=== PATIENT | male | born 1950 | race Caucasian/White ===

== ENCOUNTER 2023-10-29 18:34 | Inpatient (IN) | payer MEDICARE, OTHER ==
[~2023-10-29] VITALS: Ht 182.9 cm; Wt 95.3 kg
[2023-10-29 18:57] VITALS: BP_SYST 147; PULSE 78; RESP 18; TEMP 97.7; O2SAT 96
[2023-10-29 19:19] LABS: BILIRUBIN,URINE NEGATIVE (NEGATIVE); BLOOD, URINE NEGATIVE (NEGATIVE); CLARITY/URINE CLEAR (CLEAR); COLOR,URINE YELLOW (YELLOW); GLUCOSE,URINE NEGATIVE (NEGATIVE); KETONES,URINE NEGATIVE (NEGATIVE); LEUKOCYTE ESTERASE ,URINE NEGATIVE (NEGATIVE); NITRITE, URINE NEGATIVE (NEGATIVE); PROTEIN URINE 1+ (NEGATIVE)
[2023-10-29 19:26] LABS: BACTERIA,URINE RARE /HPF (None Seen); MUCUS,URINE None Seen /LPF (None Seen); RBC,URINE NONE SEEN /HPF (0-3); WBC,URINE NONE SEEN /HPF (0-3)
[2023-10-29 19:44] LABS: MEAN CORPUSCULAR HEMOGLOBIN 36 pg (27-31); MEAN CORPUSCULAR HGB CONC 35 % (32-36); MEAN CORPUSCULAR VOLUME 103 fL (79.0-98.0); RED CELL DISTRIBUTION WIDTH 19.7 % (9.0-15.0); WHITE BLOOD COUNT (AUTO) 2.9 K/uL (4.8-10.8)
[2023-10-29 19:53] LABS: HEMATOCRIT 18.5 % (36-54); HEMOGLOBIN 6.4 g/dL (14.0-18.0); PLATELET COUNT (AUTO) 107 K/uL (130-430)
[2023-10-29 20:04] LABS: ANION GAP 13 (5-15); CALCIUM 10.7 mg/dL (8.4-11.0); CARBON DIOXIDE 24 mmol/L (23-29); CHLORIDE 105 mmol/L (98-107); CREATININE 1.34 mg/dL (0.55-1.30); GLUCOSE 163 mg/dL (74-106); POTASSIUM 3.6 mmol/L (3.5-5.1); SODIUM SERUM 142 mmol/L (136-145); UREA NITROGEN, BLOOD 31 mg/dL (8-21)
[2023-10-29 20:08] LABS: BAND % (MANUAL) 0 % (0-6); BASOPHILS % (MANUAL) 0 % (0-2); EOSINOPHILS % (MANUAL) 1 % (0-7); LYMPHOCYTES % (MANUAL) 44 % (20-46); MONOCYTES % (MANUAL) 2 % (0-11)
[2023-10-29 20:10] LABS: ANISOCYTOSIS 1+; PLATELET ESTIMATE DECREASED (ADEQUATE); POLYCHROMASIA 1+
[2023-10-29 21:07] LABS: ALBUMIN 3.5 g/dL (3.4-4.8); BILIRUBIN,DIRECT 0.1 mg/dL (0.0-0.3); TOTAL BILIRUBIN 0.4 mg/dL (0.0-1.0); TOTAL PROTEIN, SERUM 8.1 g/dL (6.4-8.3)
[2023-10-29] MEDS ORDERED: HYDROcodone/ACETAMIN 10-325 MG TAB PO PRN (21:30)
[2023-10-29] MEDS ORDERED: ACETAMINOPHEN 325 MG TABLET PO PRN (21:30)
[2023-10-29] MEDS ORDERED: ONDANSETRON HCL 4 MG/2 ML VIAL IVP PRN (21:30)
[2023-10-29] MEDS ORDERED: HYDROcodone/ACETAMIN 5-325 MG TAB (NORCO/ VICODIN) PO PRN (21:30)
[2023-10-29] MEDS ORDERED: METF-381 PO (22:13)
[2023-10-29] MEDS ORDERED: ATOR20TA64 PO (22:13)
[2023-10-29] MEDS ORDERED: CITA20TA16 PO (22:13)
[2023-10-29] MEDS ORDERED: VALS1TAB80 PO (22:13)
[2023-10-29] MEDS ORDERED: HYDR25TA86 (22:13)
[2023-10-29] MEDS ORDERED: ATEN50TA PO (22:13)
[2023-10-29] MEDS ORDERED: AMLO10TA88 PO (22:13)
[2023-10-29] MEDS ORDERED: ASPI-1393 PO (22:14)
[2023-10-30 03:38] LABS: HEMOGLOBIN 7.4 g/dL (14.0-18.0); MEAN CORPUSCULAR HEMOGLOBIN 33 pg (27-31); MEAN CORPUSCULAR HGB CONC 35 % (32-36); MEAN CORPUSCULAR VOLUME 95 fL (79.0-98.0); NEUTROPHILS # (AUTO) 1.3 K/uL (1.8-7.7)
[2023-10-30 03:45] LABS: BASOPHILS % (AUTO) 0.2 % (0.0-2.0); EOSINOPHILS % (AUTO) 1.2 % (0.0-4.0); LYMPHOCYTES % (AUTO) 58.2 % (20.5-51.5); MONOCYTES # (AUTO) 0.1 K/uL (0.0-1.0); MONOCYTES % (AUTO) 1.8 % (1.7-9.3); NEUTROPHILS % (AUTO) 38.6 % (40.0-70.0); PLATELET COUNT (AUTO) 92 K/uL (130-430); RED BLOOD CELL COUNT(AUTO) 2.27 MIL/uL (4.2-6.2); RED CELL DISTRIBUTION WIDTH 20.4 % (9.0-15.0); WHITE BLOOD COUNT (AUTO) 3.4 K/uL (4.8-10.8)
[2023-10-30 03:54] LABS: HEMATOCRIT 21.5 % (36-54)
[2023-10-30 08:20] LABS: BASOPHILS % (AUTO) 0.3 % (0.0-2.0); EOSINOPHILS % (AUTO) 0.8 % (0.0-4.0); HEMOGLOBIN 7.4 g/dL (14.0-18.0); LYMPHOCYTES # (AUTO) 1.4 K/uL (1.0-5.5); LYMPHOCYTES % (AUTO) 46.1 % (20.5-51.5); MEAN CORPUSCULAR HEMOGLOBIN 34 pg (27-31); MEAN CORPUSCULAR HGB CONC 34 % (32-36); MEAN CORPUSCULAR VOLUME 99 fL (79.0-98.0); MONOCYTES # (AUTO) 0.3 K/uL (0.0-1.0); NEUTROPHILS # (AUTO) 1.4 K/uL (1.8-7.7); PLATELET COUNT (AUTO) 89 K/uL (130-430); RED BLOOD CELL COUNT(AUTO) 2.18 MIL/uL (4.2-6.2); RED CELL DISTRIBUTION WIDTH 21.1 % (9.0-15.0); WHITE BLOOD COUNT (AUTO) 3.1 K/uL (4.8-10.8)
[2023-10-30 08:32] LABS: ALANINE AMINOTRANSFERASE 19 U/L (12-78); ANION GAP 7 (5-15); ASPARTATE AMINOTRANSFERASE 15 U/L (10-37); CALCIUM 9.4 mg/dL (8.4-11.0); CARBON DIOXIDE 27 mmol/L (23-29); CHLORIDE 109 mmol/L (98-107); CREATININE 1.09 mg/dL (0.55-1.30); GLUCOSE 113 mg/dL (74-106); POTASSIUM 3.5 mmol/L (3.5-5.1); SODIUM SERUM 143 mmol/L (136-145); TOTAL BILIRUBIN 0.9 mg/dL (0.0-1.0); TOTAL PROTEIN, SERUM 7.2 g/dL (6.4-8.3); UREA NITROGEN, BLOOD 23 mg/dL (8-21)
[2023-10-30 08:43] LABS: HEMATOCRIT 21.5 % (36-54)
[2023-10-30 08:48] LABS: NEUTROPHILS % (AUTO) 43.8 % (40.0-70.0)
[2023-10-30] MEDS: PANTOPRAZOLE SODIUM 40 MG/VIAL (PROTONIX) IVP ONE (11:59)
[2023-10-30] MEDS: amLODIPine BESYLATE 10 MG TABLET PO ONE (11:59)
[2023-10-30] MEDS ORDERED: INSULIN Lispro 100 UNITS/ML, 3 ML VIAL (humaLOG) ONE (12:35)
[2023-10-30] MEDS: INSULIN LISPRO SLIDING SCALE 100 UNITS/ML, 3 ML VIAL (humaLOG) SUBCUT PRN (12:37)
[2023-10-30 16:00] LABS: HEMATOCRIT 24.9 % (36-54); HEMOGLOBIN 8.6 g/dL (14.0-18.0); MEAN CORPUSCULAR HEMOGLOBIN 32 pg (27-31); MEAN CORPUSCULAR HGB CONC 35 % (32-36); MEAN CORPUSCULAR VOLUME 92 fL (79.0-98.0); PLATELET COUNT (AUTO) 84 K/uL (130-430); RED BLOOD CELL COUNT(AUTO) 2.71 MIL/uL (4.2-6.2); RED CELL DISTRIBUTION WIDTH 20.3 % (9.0-15.0); WHITE BLOOD COUNT (AUTO) 3.2 K/uL (4.8-10.8)
[2023-10-30 16:04] LABS: TOTAL IRON BIND. CAPACITY 238 ug/dL (250-450)
[2023-10-30 19:18] LABS: BAND % (MANUAL) 3 % (0-6); BASOPHILS % (MANUAL) 0 % (0-2); EOSINOPHILS % (MANUAL) 0 % (0-7); LYMPHOCYTES % (MANUAL) 32 % (20-46); MONOCYTES % (MANUAL) 0 % (0-11)
[2023-10-30 19:21] LABS: PLATELET ESTIMATE DECREASED (ADEQUATE); POLYCHROMASIA 1+
[2023-10-30 19:27] LABS: ATYPICAL LYMPHOCYTES % 2 % (0-0)
[2023-10-30 19:33] LABS: ANISOCYTOSIS 2+; OTHER CELLS,MANUAL % 20 (0-0); OVALOCYTES FEW; STOMATOCYTES FEW; TEAR DROP CELLS FEW
[2023-10-30] MEDS: hydrALAZINE HCL 25 MG TABLET PO SCH (21:31)
[2023-10-30 21:34] VITALS: BP_SYST 163; PULSE 89; RESP 18; TEMP 98
[2023-10-31 00:14] VITALS: BP_SYST 158; PULSE 69; RESP 18; O2SAT 98
[2023-10-31 04:01] LABS: ANION GAP 10 (5-15); CALCIUM 8.6 mg/dL (8.4-11.0); CARBON DIOXIDE 25 mmol/L (23-29); CHLORIDE 105 mmol/L (98-107); CREATININE 0.98 mg/dL (0.55-1.30); GLUCOSE 102 mg/dL (74-106); POTASSIUM 3.1 mmol/L (3.5-5.1); SODIUM SERUM 140 mmol/L (136-145); UREA NITROGEN, BLOOD 22 mg/dL (8-21)
[2023-10-31 04:10] LABS: BASOPHILS % (AUTO) 0.4 % (0.0-2.0); EOSINOPHILS % (AUTO) 0.9 % (0.0-4.0); HEMOGLOBIN 7.9 g/dL (14.0-18.0); LYMPHOCYTES # (AUTO) 1.4 K/uL (1.0-5.5); LYMPHOCYTES % (AUTO) 44.1 % (20.5-51.5); MEAN CORPUSCULAR HEMOGLOBIN 33 pg (27-31); MEAN CORPUSCULAR HGB CONC 34 % (32-36); MEAN CORPUSCULAR VOLUME 96 fL (79.0-98.0); MONOCYTES # (AUTO) 0.3 K/uL (0.0-1.0); MONOCYTES % (AUTO) 10.5 % (1.7-9.3); NEUTROPHILS # (AUTO) 1.4 K/uL (1.8-7.7); NEUTROPHILS % (AUTO) 44.1 % (40.0-70.0); PLATELET COUNT (AUTO) 84 K/uL (130-430); RED CELL DISTRIBUTION WIDTH 20.5 % (9.0-15.0); WHITE BLOOD COUNT (AUTO) 3.2 K/uL (4.8-10.8)
[2023-10-31 08:00] VITALS: BP_SYST 148; PULSE 88; RESP 18; TEMP 97.5; O2SAT 96
[2023-10-31] MEDS: CITALOPRAM HYDROBROMIDE 20 MG TABLET PO SCH (08:49)
[2023-10-31] MEDS: amLODIPine BESYLATE 10 MG TABLET PO SCH (08:50)
[2023-10-31] MEDS: ASPIRIN 81 MG TABLET(ECOTRIN) PO SCH (08:50)
[2023-10-31] MEDS: ATORVASTATIN 20 MG TABLET PO SCH (08:50)
[2023-10-31] MEDS: ATENOLOL 50 MG TABLET (TENORMIN) PO SCH (08:50)
[2023-10-31] MEDS: PANTOPRAZOLE SODIUM 40 MG/VIAL (PROTONIX) IVP SCH (08:58)
[2023-10-31] MEDS: POTASSIUM CHLORIDE 20 MEQ TABLET.ER PO ONE (10:04)
[2023-10-31 10:40] VITALS: O2SAT 96
[2023-10-31 11:42] VITALS: BP_SYST 134; PULSE 80; RESP 17; TEMP 97.2; O2SAT 96
[2023-10-31] MEDS ORDERED: DIATR MEGLU/DIATRIZ SOD 30 ML SOLUTION PO ONE (12:57)
[2023-10-31 14:28] LABS: HEMATOCRIT 26.7 % (36-54); HEMOGLOBIN 9.2 g/dL (14.0-18.0); MEAN CORPUSCULAR HEMOGLOBIN 32 pg (27-31); MEAN CORPUSCULAR HGB CONC 35 % (32-36); MEAN CORPUSCULAR VOLUME 94 fL (79.0-98.0); PLATELET COUNT (AUTO) 96 K/uL (130-430); RED BLOOD CELL COUNT(AUTO) 2.84 MIL/uL (4.2-6.2); RED CELL DISTRIBUTION WIDTH 20.6 % (9.0-15.0); WHITE BLOOD COUNT (AUTO) 3.2 K/uL (4.8-10.8)
[2023-10-31 15:16] LABS: ATYPICAL LYMPHOCYTES % 17 % (0-0); BAND % (MANUAL) 1 % (0-6); LYMPHOCYTES % (MANUAL) 27 % (20-46)
[2023-10-31 15:18] LABS: BASOPHILS % (MANUAL) 0 % (0-2); EOSINOPHILS % (MANUAL) 0 % (0-7); MONOCYTES % (MANUAL) 6 % (0-11)
[2023-10-31 15:20] LABS: ANISOCYTOSIS 1+; PLATELET ESTIMATE DECREASED (ADEQUATE)
[2023-10-31 15:57] VITALS: BP_SYST 140; PULSE 87; RESP 16; TEMP 97.7; O2SAT 96
[2023-10-31 16:29] VITALS: BP_SYST 140; PULSE 87; RESP 16; TEMP 97.7; O2SAT 96
== END 2023-10-31 16:45 | disposition home or self-care (01) | DRG 812 ==
LOC: SED 18:34 → STU 21:26
PROVIDERS: ADMIT Family Medicine; ATTEND Family Medicine
PROC: 30233N1 Transfusion of Nonautologous Red Blood Cells into Peripheral Vein, Percutaneous Approach (ICD-10-PCS; principal; 2023-10-29)
DX: D64.9 Anemia, unspecified (principal); N17.9 Acute kidney failure, unspecified; D69.6 Thrombocytopenia, unspecified; C61 Malignant neoplasm of prostate; E03.9 Hypothyroidism, unspecified; I10 Essential (primary) hypertension; E11.9 Type 2 diabetes mellitus without complications; Z88.2 Allergy status to sulfonamides; Z88.8 Allergy status to other drugs, medicaments and biological substances; Z79.82 Long term (current) use of aspirin; Z79.899 Other long term (current) drug therapy; Z79.84 Long term (current) use of oral hypoglycemic drugs; D46.9 Myelodysplastic syndrome, unspecified
CPT/HCPCS: 36415; 71045; 76700; 80048; 80053; 80076; 81000; 81001; 81015; 82948; 83010; 83037; 83540; 83550; 84443; 84484; 85007; 85025; 85027; 85044; 86886; 86900; 86901; 86920; 93005; 99285; C9113; G0378; P9021; Q9964; Q9967